=== PATIENT | female | born 1985 | race Two or more races ===

== ENCOUNTER 2020-05-25 22:36 | Observation (INO) | payer OTHER ==
[~2020-05-25] VITALS: Ht 165.1 cm; Wt 82.6 kg
[2020-05-25 23:40] LABS: Urine Bacteria FEW /hpf (None Seen); Urine Blood Negative /uL (Negative); Urine Specific Gravity 1.009 (1.001-1.035); Urine WBC 5 /hpf (0 - 5)
[2020-05-26] LABS: Alcohol, Urine < 3.0 mg/dL (0-10); Amphetamine Screen, Urine NEGATIVE (NEGATIVE); Barbiturate Scree,Urine NEGATIVE (NEGATIVE); Benzodiazephine Screen, Urine NEGATIVE (NEGATIVE); Cocaine Screen, Urine NEGATIVE (NEGATIVE); Opiate Scree,Urine NEGATIVE (NEGATIVE); Phencyclidine Screen, Urine NEGATIVE (NEGATIVE)
[2020-05-26 00:08] LABS: Cannabinoid Screen, Urine POSITIVE (NEGATIVE)
== END 2020-05-26 00:42 | disposition home or self-care (01) ==
LOC: LDRP 22:36
PROVIDERS: ADMIT Specialist; ATTEND Specialist
DX: O42.913 Preterm premature rupture of membranes, unspecified as to length of time between rupture and onset of labor, third trimester (principal); Z3A.31 31 weeks gestation of pregnancy; Z79.899 Other long term (current) drug therapy
CPT/HCPCS: 59025; 80307; 81001; 81002; 84112; G0378; Q0114

== ENCOUNTER 2021-12-16 03:52 | Emergency (ER) | payer MEDICAID ==
[~2021-12-16] VITALS: Ht 162.6 cm; Wt 63.5 kg
[2021-12-16 04:19] VITALS: BP 115/81
[2021-12-16] MEDS ORDERED: HYDROcodone-ACET 10/325MG TAB PO ONE (05:00)
== END 2021-12-16 05:52 | disposition home or self-care (01) ==
LOC: EDBD 03:52 → ER 03:52
DX: R06.02 Shortness of breath (principal); T59.811A Toxic effect of smoke, accidental (unintentional), initial encounter; J45.909 Unspecified asthma, uncomplicated; Y92.89 Other specified places as the place of occurrence of the external cause
CPT/HCPCS: 36600; 71045; 82805

== ENCOUNTER 2022-12-15 23:23 | Observation (INO) | payer MEDICAID | END 2022-12-16 01:20 | disposition home or self-care (01) | LOC: LDRP 23:23 | PROVIDERS: ADMIT Obstetrics & Gynecology; ATTEND Obstetrics & Gynecology | DX: O36.8130 Decreased fetal movements, third trimester, not applicable or unspecified (principal); Z79.899 Other long term (current) drug therapy; Z3A.37 37 weeks gestation of pregnancy | CPT/HCPCS: 59025; 76818; 81002; 94760; G0378 ==